=== PATIENT | male | born 1990 | race African-American/Black ===

== ENCOUNTER 2020-10-09 10:57 | Emergency (ER) | payer BC, OTHER ==
[~2020-10-09] VITALS: Ht 167.6 cm; Wt 90.7 kg
[2020-10-09 12:40] VITALS: BP 130/84
== END 2020-10-09 13:22 | disposition home or self-care (01) ==
LOC: ER 10:57
DX: S63.501A Unspecified sprain of right wrist, initial encounter (principal); S46.911A Strain of unspecified muscle, fascia and tendon at shoulder and upper arm level, right arm, initial encounter; V29.9XXA Motorcycle rider (driver) (passenger) injured in unspecified traffic accident, initial encounter; Y93.89 Activity, other specified; Y92.89 Other specified places as the place of occurrence of the external cause; Y99.8 Other external cause status
CPT/HCPCS: 73030; 73110

== ENCOUNTER 2020-12-24 14:52 | Emergency (ER) | payer BC ==
[~2020-12-24] VITALS: Ht 167.6 cm; Wt 93.0 kg
[2020-12-24 19:30] VITALS: BP 139/101
== END 2020-12-24 20:00 | disposition home or self-care (01) ==
LOC: ER 14:52
DX: L73.9 Follicular disorder, unspecified (principal); E66.9 Obesity, unspecified; Z68.33 Body mass index [BMI] 33.0-33.9, adult; Z90.89 Acquired absence of other organs